=== PATIENT | female | born 1940 | race Caucasian/White ===

== ENCOUNTER 2018-04-08 09:02 | Outpatient (CLI) | payer OTHER ==
[~2018-04-08 09:02] MED LIST: ELIQUIS5 MG PO; PRILOSEC10 MG; SYNTHROID75 MCG; ZYRTEC10 M3
== END 2018-04-08 11:00 | disposition home or self-care (01) ==
LOC: NUCLEAR 09:02
DX: I82.401 Acute embolism and thrombosis of unspecified deep veins of right lower extremity (principal)